=== PATIENT | male | born 1970 | race Caucasian/White ===

== ENCOUNTER 2019-06-08 21:12 | Emergency (ER) | payer SELFPAY ==
[2019-06-08] MEDS ORDERED: TETANUS & DIPHTHERIA TOX,ADULT 0.5 ML VIAL ONE (21:55)
--- NOTE | 2019-06-08 22:15 | EDPHYS ---
Physician Documentation [facility] Name: Herbie Sams Age: 48 yrs Sex: Male : 1970 Arrival Date: 06/08/2019 Time: 21:14 Bed 14 Private MD: ED Physician Jose Manuel Lehman HPI: 06/07 21:38 This 48 yrs old Male presents to ER via Ambulatory with complaints of pkl Laceration To Finger. 21:38 The patient or guardian reports injury, amputation tip of right index finger. Context: pkl resulted from slammed tailgate of his truck on his right index finger. Onset: The symptoms/episode began/occurred today, 5 hour(s) ago. Historical: - Allergies: 21:28 No Known Allergies; bb - Home Meds: 21:28 None [Active]; bb - PMHx: 21:28 None; bb - PSHx: 21:28 None; bb - Immunization history:: Adult Immunizations up to date, Last tetanus immunization: unknown. - Social history:: Smoking status: Patient denies any tobacco usage or history of. ROS: 21:38 Eyes: Negative for injury, pain, redness, and discharge, ENT: Negative for injury, pkl pain, and discharge, Neck: Negative for injury, pain, and swelling, Cardiovascular: Negative for chest pain, palpitations, and edema, Respiratory: Negative for shortness of breath, cough, wheezing, and pleuritic chest pain, Abdomen/GI: Negative for abdominal pain, nausea, vomiting, diarrhea, and constipation, Back: Negative for injury and pain, : Negative for injury, bleeding, discharge, and swelling, Skin: Negative for injury, rash, and discoloration, Neuro: Negative for headache, weakness, numbness, tingling, and seizure. 21:38 MS/extremity: Positive for injury or acute deformity, of the tip of right index finger. Exam: 21:38 Head/Face: Normocephalic, atraumatic. Eyes: Pupils equal round and reactive to light, pkl extra-ocular motions intact. Lids and lashes normal. Conjunctiva and sclera are non-icteric and not injected. Cornea within normal limits. Periorbital areas with no swelling, redness, or edema. ENT: Nares patent. No nasal discharge, no septal abnormalities noted. Tympanic membranes are normal and external auditory canals are clear. Oropharynx with no redness, swelling, or masses, exudates, or evidence of obstruction, uvula midline. Mucous membranes moist. Neck: Trachea midline, no thyromegaly or masses palpated, and no cervical lymphadenopathy. Supple, full range of motion without nuchal rigidity, or vertebral point tenderness. No Meningismus. Chest/axilla: Normal chest wall appearance and motion. Nontender with no deformity. No lesions are appreciated. Cardiovascular: Regular rate and rhythm with a normal S1 and S2. No gallops, murmurs, or rubs. Normal PMI, no JVD. No pulse deficits. Respiratory: Lungs have equal breath sounds bilaterally, clear to auscultation and percussion. No rales, rhonchi or wheezes noted. No increased work of breathing, no retractions or nasal flaring. Abdomen/GI: Soft, non-tender, with normal bowel sounds. No distension or tympany. No guarding or rebound. No evidence of tenderness throughout. Back: No spinal tenderness. No costovertebral tenderness. Full range of motion. Neuro: Awake and alert, GCS 15, oriented to person, place, time, and situation. Cranial nerves II-XII grossly intact. Motor strength 5/5 in all extremities. Sensory grossly intact. Cerebellar exam normal. Normal gait. 21:38 Musculoskeletal/extremity: Extremities: grossly normal except: noted in the right index finger: amputation tip right index finger. Vital Signs: 21:26 BP 144 / 96; Pulse 65; Resp 16 S; Temp 98(O); Pulse Ox 98% on R/A; Weight 97.52 kg (R); bb Height 6 ft. 1 in. (185.42 cm) (R); Pain 3/10; 21:26 Body Mass Index 28.37 (97.52 kg, 185.42 cm) bb MDM: 21:32 Patient medically screened. pkl 22:11 Data reviewed: vital signs, nurses notes, radiologic studies, plain films. ED course: pkl Talked to Dr. Sanchez, will see patient at 9 A. M. at his [place] office. 06/07 21:29 Order name: XRAY Hand RIGHT 3 View bb 06/07 22:10 Order name: Saline Lock; Complete Time: 22:48 pkl Administered Medications: 21:54 Drug: Tetanus-Diphtheria Toxoid Adult 0.5 ml {[facility]: [employer]. Exp: bb 03/07/2021. Lot #: [id number]. } Route: IM; Site: right deltoid; 22:58 Follow up: Response: No adverse reaction mg2 22:47 Drug: Ancef 1 grams Route: IVPB; Site: left antecubital; mg2 22:58 Follow up: Response: No adverse reaction; IV Status: Completed infusion mg2 Disposition: 06/08/19 22:14 Discharged to Home. Impression: Amputation tip right index finger with ungal tuft fracture. - Condition is Stable. - Prescriptions for Keflex 500 mg Oral Capsule - take 1 capsule by ORAL route every 6 hours for 10 days; 40 capsule. - Medication Reconciliation Form, Thank You Letter, Antibiotic Education, Prescription Opioid Use form. - Follow up: Abbe Myles MD; When: Tomorrow; Reason: Re-evaluation by your physician. - Problem is new. - Symptoms are unchanged. Signatures: Dispatcher [employer] EDAZ Jose Manuel Lehman MD MD pkl Annette Cardenas RN RN Michael Jones RN RN mg2 Corrections: (The following items were deleted from the chart) 23:00 22:14 06/08/2019 22:14 Discharged to Home. Impression: Amputation tip right index mg2 finger with ungal tuft fracture. Condition is Stable. Forms are Medication Reconciliation Form, Thank You Letter, Antibiotic Education, Prescription Opioid Use. Follow up: Abbe Myles; When: Tomorrow; Reason: Re-evaluation by your physician. Problem is new. Symptoms are unchanged. pkl
--- NOTE | 2019-06-08 22:15 | ER ---
Nurse's Notes [facility] Name: Herbie Sams Age: 48 yrs Sex: Male : 1970 Arrival Date: 06/08/2019 Time: 21:14 Bed 14 Private MD: Diagnosis: Amputation tip right index finger with ungal tuft fracture Presentation: 06/07 21:26 Chief complaint: Patient states: about 1600 today he slammed his right forefinger in bb the tailgate of his truck and cut off the tip of his finger. Coronavirus screen: The patient has NOT traveled to [place] in the past 14 days. Proceed with normal triage procedures. Ebola Screen: No symptoms or risks identified at this time. Initial Sepsis Screen: Does the patient meet any 2 criteria? No. Patient's initial sepsis screen is negative. Does the patient have a suspected source of infection? No. Patient's initial sepsis screen is negative. Risk Assessment: Do you want to hurt yourself or someone else? Patient reports no desire to harm self or others. 21:26 Method Of Arrival: Ambulatory 21:26 Acuity: EVAN 3 bb Historical: - Allergies: 21:28 No Known Allergies; bb - Home Meds: 21:28 None [Active]; bb - PMHx: 21:28 None; bb - PSHx: 21:28 None; bb - Immunization history:: Adult Immunizations up to date, Last tetanus immunization: unknown. - Social history:: Smoking status: Patient denies any tobacco usage or history of. Screenin:40 Abuse screen: Denies threats or abuse. Nutritional screening: No deficits noted. bb Tuberculosis screening: No symptoms or risk factors identified. Fall Risk None identified. Assessment: 21:40 General: Appears in no apparent distress. Behavior is calm, cooperative. Pain: bb Complains of pain in dorsal aspect of distal phalanx of right index finger and right index fingernail Pain currently is 3 out of 10 on a pain scale. Neuro: Level of Consciousness is awake, alert, obeys commands, Oriented to person, place, time, situation. Cardiovascular: No deficits noted. Respiratory: Respiratory effort is even, unlabored, Respiratory pattern is regular. GI: No signs and/or symptoms were reported involving the gastrointestinal system. Derm: Skin is pink, warm \T\ dry. Musculoskeletal: Amputation of tip of right forefinger. Vital Signs: 21:26 BP 144 / 96; Pulse 65; Resp 16 S; Temp 98(O); Pulse Ox 98% on R/A; Weight 97.52 kg (R); bb Height 6 ft. 1 in. (185.42 cm) (R); Pain 3/10; 21:26 Body Mass Index 28.37 (97.52 kg, 185.42 cm) bb ED Course: 21:14 Patient arrived in ED. cl3 21:27 Triage completed. bb 21:28 Arm band placed on left wrist. Patient placed in an exam room, on a stretcher. X-ray bb ordered. 21:32 Jose Manuel Lehman MD is Attending Physician. pkl 21:40 Patient has correct armband on for positive identification. Call light in reach. bb 21:48 Annette Cardenas RN is Primary Nurse. bb 22:11 XRAY Hand RIGHT 3 View In Process Unspecified. EDMS 22:13 Abbe Myles MD is Referral Physician. pkl 22:25 Iodine/sterile water solution prepared. Patient is soaking right index finger in mb4 solution. 22:59 No provider procedures requiring assistance completed. Patient did not have IV access mg2 during this emergency room visit. Wound care: to amputated right index finger located on right index fingernail. Administered Medications: 21:54 Drug: Tetanus-Diphtheria Toxoid Adult 0.5 ml {[employer] Grinder: [employer]. Exp: bb 03/07/2021. Lot #: [id number]. } Route: IM; Site: right deltoid; 22:58 Follow up: Response: No adverse reaction mg2 22:47 Drug: Ancef 1 grams Route: IVPB; Site: left antecubital; mg2 22:58 Follow up: Response: No adverse reaction; IV Status: Completed infusion mg2 Outcome: 22:14 Discharge ordered by . pkl 22:59 Discharged to home ambulatory. mg2 22:59 Condition: stable 22:59 Discharge instructions given to patient, Instructed on discharge instructions, follow up and referral plans. medication usage, wound care, Demonstrated understanding of instructions, follow-up care, medications, wound care, Prescriptions given X 1. 23:00 Patient left the ED. mg2 Signatures: Dispatcher [employer] EDMS Jose Manuel Lehman MD MD pkAnnette Cantrell, RN RN bb Michael Anderson, RN RN mg2 Chani Breen mb4 Khai Kent cl3
[2019-06-08] MEDS ORDERED: CEFAZOLIN/SWI 1gm 1 GM/10 ML SYR ONE (22:34)
[2019-06-08 23:06] VITALS: BP 144/96; TEMP 98; O2SAT 98
--- NOTE | 2019-06-08 23:13 | RAD REPORT ---
EXAM DESCRIPTION: RAD - Hand Right 3 View - 06/08/2019 10:10 pm CLINICAL HISTORY: SMASH INJURY COMPARISON: No comparisons FINDINGS: Soft tissue amputation of the second finger distal aspect is noted with underlying tuft fr acture. No dislocation evident. Tiny bony fragment or foreign body is seen the dorsal soft tissues of the second distal phalanx proximally.
== END 2019-06-08 23:00 | disposition home or self-care (01) ==
LOC: ER 21:12
DX: S68.120A Partial traumatic metacarpophalangeal amputation of right index finger, initial encounter (principal); W23.0XXA Caught, crushed, jammed, or pinched between moving objects, initial encounter; Y93.9 Activity, unspecified; Y92.9 Unspecified place or not applicable; Z23 Encounter for immunization
CPT/HCPCS: 90471; 90714; 96374; 99284; J0690